=== PATIENT | female | born 1985 | race Caucasian/White ===

== ENCOUNTER 2025-06-11 10:30 | Outpatient (AMB) | payer MEDICAID, SELFPAY ==
[2025-06-11 10:57] VITALS: BP 116/76; PULSE 72; RESP 14; TEMP 36.7; O2SAT 97; BMI 32.3
--- NOTE | 2025-06-11 10:57 | AMB.OBINITIA ---
Vital Signs 06/11/25 10:57 Height 1.65 m Height Method Measured Weight 88.054 kg Weight Measurement Method Standing Scale BMI 32.3 BP 116/76 Blood Pressure Source Automatic Cuff Blood Pressure Location Left Upper Arm Position Sitting Respiration 14 Pulse 72 Pulse Source Monitor Temp 98.0 F Temp Source Oral Pulse Oximetry (%) 97 Oxygen Delivery Method Room Air Allergies/Home Meds Allergies & Medications Allergies NKA* Allergy (Uncoded 06/11/25 10:57) Medication Reconciliation Vitamin * 1 tab PO QDAY #0 tabs 09/02/14 [History Confirmed 06/11/25] Intake Visit Data Collection New Patient or Established: New Patient (never been to [facility]) Reason for Visit:: INITIAL CARE Seen by Clinical Staff ONLY (RN/MA): No Service Manager Required: No Do You Feel Safe at Home: Yes Authorities Contacted: N/A PCP or OBGYN visit in last 3 months: Yes Hx Now: Yes Are you currently on any form of Control: No Last menstrual period: 02/27/25 Pain Present Currently: No Pain Scale Used: Coyle-[place]/Numerical Pain scale:: 0 Smoking Status Smoking Status: Never smoker Immunizations Flu Vaccine in the Last 12 Months: No Flu Vaccine Exclusion Criteria: Refused by Patient Questionnaires Covid-19 Vaccine Questionnaire Has patient been vacinated for Covid-19 Have you been vacinated for Covid-19: No PHQ-9 PHQ-2 Over the last 2 weeks, how often have you been bothered by any of the following problems? 1. Little interest or pleasure in doing things: not at all 2. Feeling down, depressed, or hopeless: not at all Total score: 0 PHQ-9 3. Trouble falling or staying asleep, or sleeping too much: Not at all 4. Feeling tired or having little energy: Not at all 5. Poor appetite or overeating: Not at all 6. Feeling bad about yourself - or that you are a failure or have let yourself or your family down: Not at all 7. Trouble concentrating on things, such as reading the newspaper or watching television: Not at all 8. Moving or speaking so slowly that other people could have noticed? - Or the opposite - being so fidgety or restless that you have been moving around a lot more than usual: not at all 9. Thoughts that you would be better off or of hurting yourself in some way: Not at all Total score: 0 Source: Developed by Drs. Parvez Krueger, Raina Mcghee, Jay Cazares and colleagues, with an educational janet from [employer]. Depression screen completed yes Social History Living Situation History Marital Status: Lives With: Family Housing: House Tobacco History Smoking Status: Never smoker Second Hand Smoke Exposure: No Alcohol History Alcohol Intake: Current Domestic Abuse History Do You Feel Safe at Home: Yes History of Present Illness HPI Narrative 39-year-old 4 para 3 for OBI. Patient's last period was February 27, 2025. This gives EDC December 04, 2025. Patient denies social habits. Denies existing chronic illness. Denies surgeries. She has had 3 previous pregnancies and all 3 births were uncomplicated. Patient is very happy about the . The father the baby is involved. 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 And no SAB complaints OB Initial Visit OB Flowsheet OB Flowsheet Initial Weight: Not Recorded Date <del>?</del> EGA Weight BP Alb Glu CTX Pres Fundal ht FHR Mov Dilation Station Effacement Hx Notes Visit Note 06/11/25 <del>?</del> 14w 6d 88.054 kg 116/76 absent unknown 14 156 absent 49-year-old 4 para 3 for OBI. Last period February 27, 2025. And EDC is December 04, 2025. She denies any SAB complaints at this time. Does not feel movement yet. Patient has no second trimester discomfort SAB precautions. Patient will get labs May 2087. She will get a OB panel with NIPT carrier screen and AFP. Schedule with maternal- medicine at [facility]. Continue prenatals. And return in 4 weeks OB check Menstrual History Menstrual reliability: definite Flow: normal Menstrual regularity: regular Monthly: Yes Age at menarche: 15 On control pills at conception: No Associated symptoms (LMP): Reports fatigue and breast tenderness OB History : 4 Para: 3 # of Living Children: 3 Delivery History 1st : Child's name: NEO date: 04/13/09 sex: male Gestational age at delivery (weeks): 36 Delivery type: vaginal Delivery complications: NONE History of depression before or after : No 2nd : Child's name: ANA date: 09/21/10 sex: female Gestational age at delivery (weeks): 41 Delivery type: vaginal Delivery complications: NONE History of depression before or after : No 3rd : Child's name: CARYL date: 09/03/14 sex: male Gestational age at delivery (weeks): 40 Delivery type: vaginal Delivery complications: NONE History of depression before or after : No Infection History & Risk Evaluation History of STDs: none Genetic Screening & History Genetic Screening/Teratology Counseling - Includes patient, baby's father, or anyone in either family with: 1. Patient's age 35 years or older as of estimated date of delivery: Yes 2. Thalassemia (French, German, Mediterranean, or Background); MCV less than 80: No 3. Neural Tube Defect (Meningomyelocele, Spina Bifida, or Anencephaly): No 4. Congenital Heart Defect: No 5. Down Syndrome: No 6. Brenden-Sachs (Ashkenazi Tenriism, Cajun, Northern Irish [place]): No 7. Moises Disease (Ashkenazi Tenriism): No 8. Familial Dysautonomia (Ashkenazi Tenriism): No 9. Sickle Cell Disease or Trait (): No 10. Hemophilia or other blood disorders: No 11. Muscular Dystrophy: No 12. Cystic Fibrosis: No 13. Alyson's Chorea: No 14. Mental Retardation/Autism: No 15. Other inherited genetic or chromosomal disorder: No 16. Maternal Metabolic Disorder (EG,TYPE 1 Diabetes, PKU): No 17. Patient or baby's father had a child with defects not listed above: No 18. Recurrent loss or a stillbirth: No 19. Medications (including supplements, vitamins, herbs or otc drugs)/illicit/recreational drugs/alcohol since last menstrual period: No 20. Any other: No Infection History 1. Live with someone with TB or exposed to TB: No 2. Rash or viral illness since last menstrual period: No 3. Hepatitis B,C: No Other (see comments) Source: [employer] Review of Systems Review of Systems Systems Reviewed: All systems reviewed, normal except as documented Constitutional Constitutional: Reports fatigue Endocrine Endocrine: Reports fatigue Exam General Limitations: no limitations General Appearance: alert, in no apparent distress, comfortable, cooperative, healthy appearing, well developed and well groomed Head Head exam: atraumatic, normocephalic and normal inspection ENT ENT exam: Present normal exam, normal oropharynx and mucous membranes moist Neck Neck exam: Present normal inspection, full ROM and trachea midline Resp Respiratory exam: Present normal lung sounds bilaterally Card Cardiovascular exam: Present regular rate, normal rhythm and normal heart sounds Abdominal Abdominal exam: Present soft and normal bowel sounds Psych Psychiatric exam: Present normal affect and normal mood Office Procedures OBC Clinic LOC & Office Proc's Nursing/Assessment Patient Status: Initial/New Patient OB Clinic Nursing Assessment: Medication Reconciliation, Update PMH in EMR and Vital Signs OB Clinic Coordination of Care: AMA, Complex Care and Chronic Disease 1-5, Education Complex Pt/Fam, Consent,records obtained, informed consent, 1 Ins Authorization, Lab and Imaging orders, Results/Orders obtained and Staff clarify orders Special Needs: Heart tones New Patient Charge New Patient Point Assignment: [id number] New Patient Point Charge: DOUBLER HELPER Level 5 (1159-[id number]) Assessment & Plan Diagnosis / Problem List (1) Encounter for supervision of high risk in second trimester, antepartum: Status: Acute (2) Advanced maternal age (AMA) in : Status: Acute Plan NIPT, AFP and OB panel today on Saturday. Schedule anatomy scan with MFM at [facility]. Discussed SAB precautions. Continue prenatals. Discussed dates. Return in 4 weeks OB check Additional Plan Follow Up: 4 Weeks (obc)
== END 2025-06-11 11:34 | disposition home or self-care (01) ==
LOC: HODSOBC 10:30
PROVIDERS: Supervising Provider Advanced Practice Midwife; Visit Provider Advanced Practice Midwife
DX: O09.522 Supervision of elderly multigravida, second trimester (principal); Z3A.14 14 weeks gestation of pregnancy
CPT/HCPCS: 99205; G0463

== ENCOUNTER 2025-07-06 10:27 | Outpatient (AMB) | payer MEDICAID, SELFPAY ==
[2025-07-06 10:34] VITALS: BP 125/79; PULSE 83; RESP 18; TEMP 36.6; O2SAT 98; BMI 32.6
--- NOTE | 2025-07-06 10:34 | AMB.OBPNC ---
Vital Signs 07/06/25 10:34 Height 1.65 m Height Method Stated Weight 88.961 kg Weight Measurement Method Standing Scale BMI 32.6 BP 125/79 Blood Pressure Source Automatic Cuff Blood Pressure Location Left Upper Arm Position Sitting Respiration 18 Pulse 83 Pulse Source Monitor Temp 97.8 F Temp Source Oral Pulse Oximetry (%) 98 Oxygen Delivery Method Room Air Allergies/Home Meds Allergies & Medications Allergies NKA* Allergy (Uncoded 07/06/25 10:35) Medication Reconciliation Vitamin * 1 tab PO QDAY #0 tabs 09/02/14 [History Confirmed 07/06/25] Immunizations Immunizations Flu Vaccine in the Last 12 Months: No Flu Vaccine Exclusion Criteria: No Exclusion Criteria Care OB Visit Log OB Flowsheet Initial Weight: Not Recorded Date <del>?</del> EGA Weight BP Alb Glu CTX Pres Fundal ht FHR Mov Dilation Station Effacement Hx Notes Visit Note 06/11/25 <del>?</del> 14w 6d 88.054 kg 116/76 absent unknown 14 156 absent 49-year-old 4 para 3 for OBI. Last period February 27, 2025. And EDC is December 04, 2025. She denies any SAB complaints at this time. Does not feel movement yet. Patient has no second trimester discomfort SAB precautions. Patient will get labs May 2087. She will get a OB panel with NIPT carrier screen and AFP. Schedule with maternal- medicine at [facility]. Continue prenatals. And return in 4 weeks OB check 07/06/25 <del>?</del> 18w 3d 88.961 kg 125/79 absent unknown 18 145 absent NIPT was not ran due to insufficient testing material. Denies nausea and vomiting. Denies SAB complaints. Patient has MFM appointment June and started July 30. Keep MFM appointment for July 30. Will do NIPT and AFP June 30. Discussed SAB and labor precautions. Return in 4 weeks OB check NIRAJ Calculator Estimated Delivery Date Method Current WG Current Estimate 12/04/25 LMP (Certain) 18w 3d Notes Visit Date: 07/06/25 Last Updated by: Wendi Jos Richfield, CNM OB panel;: O+,abs-, rpr;;nr, rub imm, hbsag-,hiv-,hc-, GC/CT-, . NIPT was not ran on 06/14: insufficient material. Redraw 07/12, SMA and carrier screen- Visit Date: 06/11/25 Last Updated by: Wendi Phillips CNM 39 yo . LMP 02/27/25. EDC: 12/04/25 Office Procedures OBC Clinic LOC & Office Proc's Nursing/Assessment Patient Status: Established Patient OB Clinic Nursing Assessment: Medication Reconciliation, Update PMH in EMR and Vital Signs OB Clinic Coordination of Care: Consent,records obtained, informed consent, Education Simp Pt/Fam, Lab and Imaging orders, Results/Orders obtained and Staff clarify orders Special Needs: Heart tones Established Patient Charge Established Patient Point Assignment: 110 Established Patient Point Charge: EP Level 3 (80-115) Assessment & Plan Diagnosis / Problem List (1) Advanced maternal age (AMA) in : Status: Acute (2) Encounter for supervision of high risk in second trimester, antepartum: Status: Acute Plan Patient will do AFP and NIPT July 12. Discussed SAB and labor precautions. Continue prenatals. Patient has an MFM appointment July 30 for anatomy scan. Return in 4 weeks OB check Additional Plan Follow Up: 4 Weeks (obc)
== END 2025-07-06 11:33 | disposition home or self-care (01) ==
LOC: HODSOBC 10:27
PROVIDERS: Supervising Provider Advanced Practice Midwife; Visit Provider Advanced Practice Midwife
DX: O09.522 Supervision of elderly multigravida, second trimester (principal); Z3A.18 18 weeks gestation of pregnancy
CPT/HCPCS: 99213; G0463